=== PATIENT | female | born 1995 | race Caucasian/White ===

== ENCOUNTER 2018-07-11 11:34 | Emergency (ER) | payer BC ==
[2018-07-11 12:51] VITALS: BP 117/70
--- NOTE | 2018-07-11 13:30 | UC ---
UC General HPI - HPI Summary HPI Summary: Pt c/o sudden onset of ST, left ear pain, nasal congestion , chest congestion X 2 days. - History of Current Complaint Chief Complaint: UCRespiratory Stated Complaint: EAR PAIN, SORE THROAT Time Seen by Provider: 07/11/18 13:17 Hx Obtained From: Patient Hx Last Menstrual Period: 06/25/18 Onset/Duration: Sudden Onset, Lasting Days, Still Present Timing: Constant Onset Severity: Mild Current Severity: Mild Pain Intensity: 3 - Allergy/Home Medications Allergies/Adverse Reactions: Allergies Allergy/AdvReac Type Severity Reaction Status Date / Time Sulfa (Sulfonamide Allergy Severe Rash Verified 07/11/18 12:40 Antibiotics) amoxicillin Allergy Rash Verified 07/11/18 12:40 Vomiting doxycycline Allergy Vomiting Verified 07/11/18 12:40 Home Medications: Home Medications D-Methorphan/PE/Acetaminophen [Vicks Dayquil Liquicaps] 1 cap PO BID PRN [History Confirmed 07/11/18] Dm/Acetaminophen/Doxylamine [Vicks Nyquil Liquicaps] 2 cap PO QPM PRN 07/11/18 [ History Confirmed 07/11/18] Norethindrone [Ortho Micronor] 0.35 mg PO QPM 07/11/18 [History Confirmed ] PMH/Surg Hx/FS Hx/Imm Hx Previously Healthy: Yes - Surgical History Surgical History: Yes Surgery Procedure, Year, and Place: Right carpal tunnel 2013; right knee 2013; right wrist 2014-; laparoscopies for ovarian cysts 2015, 2017 - Family History Known Family History: Positive: Cardiac Disease - Social History Occupation: Employed Full-time Lives: With Family Alcohol Use: Rare Substance Use Type: None Smoking Status (MU): Former Smoker Have You Smoked in the Last Year: No - Immunization History Vaccination Up to Date: Yes Review of Systems All Other Systems Reviewed And Are Negative: Yes Constitutional: Positive: Chills, Fatigue Skin: Positive: Negative Eyes: Positive: Negative ENT: Positive: Sore Throat, Ear Ache - left Respiratory: Positive: Cough Cardiovascular: Positive: Negative Gastrointestinal: Positive: Negative Genitourinary: Positive: Negative Motor: Positive: Negative Neurovascular: Positive: Negative Musculoskeletal: Positive: Myalgia Neurological: Positive: Negative Psychological: Positive: Negative Is Patient Immunocompromised?: No Physical Exam Triage Information Reviewed: Yes Appearance: Well-Appearing Vital Signs: Initial Vital Signs Temp 97.7 F 07/11/18 12:43 Pulse 81 07/11/18 12:43 Resp 22 07/11/18 12:43 BP 117/70 07/11/18 12:43 Pulse Ox 100 07/11/18 12:43 Vital Signs Reviewed: Yes Eye Exam: Normal ENT: Positive: Nasal congestion, TM bulging - left Dental Exam: Normal Neck exam: Normal Respiratory Exam: Normal Cardiovascular Exam: Normal Musculoskeletal Exam: Normal Neurological Exam: Normal Psychological Exam: Normal Skin Exam: Normal Course/Dx - Diagnoses Provider Diagnosis: Acute effusion of left ear, Viral syndrome Discharge - Sign-Out/Discharge Documenting (check all that apply): Patient Departure All imaging exams completed and their final reports reviewed: No Studies - Discharge Plan Condition: Stable Disposition: HOME Prescriptions: Fluticasone NASAL SPRAY 50MCG* [Flonase NASAL SPRAY 50MCG*] 2 spray BOTH NARES DAILY 7 Days #1 btl Patient Education Materials: Earache (ED), Viral Syndrome (ED) Referrals: Care [facility] [Outside] No Primary Care Phys,NOPCP [Primary Care Provider] - - Billing Disposition and Condition Condition: STABLE Disposition: Home - Attestation Statements Provider Attestation: I was available for consult. This patient was seen by the BRIANA. The patient was not presented to, seen by, or examined by me. EK
== END 2018-07-11 13:37 | disposition home or self-care (01) ==
LOC: UCCORT 11:34
DX: H65.192 Other acute nonsuppurative otitis media, left ear (principal); B34.9 Viral infection, unspecified; R09.81 Nasal congestion; J02.9 Acute pharyngitis, unspecified; M79.10 Myalgia, unspecified site; R09.89 Other specified symptoms and signs involving the circulatory and respiratory systems; Z88.2 Allergy status to sulfonamides; Z88.1 Allergy status to other antibiotic agents; Z88.0 Allergy status to penicillin; Z87.891 Personal history of nicotine dependence
CPT/HCPCS: 99202; G0463